=== PATIENT | female | born 1955 | race Caucasian/White ===

== ENCOUNTER 2021-12-05 13:07 | Observation (INO) | payer MEDICARE, BC ==
[2021-12-05 14:39] LABS: Basophils % (A) 0 %; Eosinophils # (A) 0.1 k/uL (0-0.7); Eosinophils % (A) 1 %; HCT 44.3 % (34.0-46.0); HGB 14.6 gm/dL (11.4-16.0); Lymphocytes # (A) 1.5 k/uL (1.0-4.8); Lymphocytes % (A) 17 %; MCHC 33.1 g/dL (31.0-37.0); MCV 96.9 fL (80.0-100.0); Mean Platelet Volume 7.4; Monocytes # (A) 0.7 k/uL (0-1.0); Monocytes % (A) 8 %; Neutrophils # (A) 6.4 k/uL (1.3-7.7); Neutrophils % (A) 72 %; Platelet Count 371 k/uL (150-450); RBC 4.57 m/uL (3.80-5.40); RDW 13.5 % (11.5-15.5); WBC 8.9 k/uL (3.8-10.6)
[2021-12-05 14:49] LABS: ALT 102 U/L (4-34); AST 80 U/L (14-36); African American GFR (CKD) >90 (>60 ml/min/1.73 sqM); Albumin 3.9 g/dL (3.5-5.0); Alkaline Phosphatase 83 U/L (38-126); Anion Gap 10 mmol/L; Blood Urea Nitrogen 9 mg/dL (7-17); Calcium 8.9 mg/dL (8.4-10.2); Carbon Dioxide 27 mmol/L (22-30); Chloride 98 mmol/L (98-107); Glucose 98 mg/dL (74-99); Non-African American GFR(CKD) >90 (>60 ml/min/1.73 sqM); Potassium 3.5 mmol/L (3.5-5.1); Sodium 135 mmol/L (137-145); Total Bilirubin 0.9 mg/dL (0.2-1.3); Total Protein 6.8 g/dL (6.3-8.2)
[2021-12-05 14:50] LABS: INR 0.9 (<1.2); Partial Thromboplastin Time 25.5 sec (22.0-30.0); Prothrombin Time 9.9 sec (9.0-12.0)
[2021-12-05] MEDS ORDERED: IPRATROPIUM-ALBUTEROL 3 ML NEB INHALATION STA (16:04)
[2021-12-05] MEDS ORDERED: diazePAM 5 MG/ML 1 ML VIAL IVP STA ×2 (16:04→17:51)
[2021-12-05 17:16] LABS: Appearance,Urine Clear (Clear); Bilirubin,Urine Negative (Negative); Blood,Urine Negative (Negative); Color,Urine Light Yellow; Glucose,Urine (UA) Negative (Negative); Ketones,Urine Negative (Negative); Leukocyte Esterase,Urine Negative (Negative); Nitrite,Urine Negative (Negative); Protein,Urine Negative (Negative); Specific Gravity,Urine 1.008 (1.001-1.035); Urobilinogen,Urine <2.0 mg/dL (<2.0)
--- NOTE | 2021-12-05 17:45 | CT ---
EXAMINATION TYPE: CT brain claudia baron DATE OF EXAM: 12/05/2021 COMPARISON: None HISTORY: headaches CT DLP: 1257 mGycm Automated exposure control for dose reduction was used. There is some cerebral cortical atrophy. There is no mass effect or midline shift. No sign of intracr anial hemorrhage. There is hypodensity in the periventricular white matter. The calvarium is intact. There is normal aeration of the mastoid sinuses. Skull base is intact. There is some straightening of the cervical spine. There is mild anterior subluxation at C4-5 posteri or elements are intact. There is multilevel cervical hypertrophic facet arthropathy. There is narrowi ng of disc spaces at C5-6 and C6-7. No compression fracture. IMPRESSION: Cervical multilevel spondylotic changes. Degenerative mild subluxation at C4-5. No fracture seen. Cerebral atrophy. No acute intracranial abnormality. Chronic small vessel ischemia.
--- NOTE | 2021-12-05 18:31 | CT ---
EXAMINATION TYPE: CT chest angio for PE DATE OF EXAM: 12/05/2021 COMPARISON: None HISTORY: SOB, elevated d-dimer CT DLP: 262.1 mGycm Automated exposure control for dose reduction was used. CONTRAST: Performed with IV Contrast, patient injected with 35 mL of Isovue 370. Images obtained from the thoracic inlet to the diaphragm with the IV contrast. There are Three-D post processed images. There is extensive interstitial and airspace infiltrate in the entire right lower lobe. No pleural ef fusion. Heart size is normal. No pericardial effusion. There are no hilar masses. No mediastinal lennie opathy. Thoracic ureter is intact. No aneurysm. The ascending aorta measures 3.8 cm. No evidence of filling defect in the pulmonary arteries. The thoracic spine is intact. No compression fracture. Sternum is intact. There is mild degenerative spur formation in the thoracic spine. There is some mild interstitial infiltrate in the left lower lo be. IMPRESSION: No evidence of pulmonary embolism. Extensive right lower lobe pneumonia.
[2021-12-05] MEDS ORDERED: cefTRIAXone IN SWFI 1,000 MG/10 ML SYRINGE IVP STA (18:53)
[2021-12-05] MEDS ORDERED: AZITHROMYCIN 500 MG in SODIUM CHLORIDE 0.9% 250 ML IVPB STA (18:53)
--- NOTE | 2021-12-05 18:57 | ED ---
SOB HPI - General Chief Complaint: Shortness of Breath Stated Complaint: Pneumonia Time Seen by Provider: 12/05/21 15:56 Source: patient, RN notes reviewed Mode of arrival: ambulatory Limitations: no limitations - History of Present Illness Initial Comments: This is a 66-year-old female who presents to the emergency department for shortness of breath. She is visiting her sister from out of town and has been here for 6 days. Since she arrived, she has felt very weak and run down. 3 days ago, she was evaluated at urgent care and diagnosed with UTI. She has since been taking Bactrim. Over the last 2-3 days she has felt increasing shortness of breath and feels that she is becoming very easily winded. Also reports an associated cough and today had minor spots of blood in her sputum. Denies any fevers or chest pain. Additionally, she notes that she has started to acquire headaches. States that they have been present for the last 2 days, she describes them as being on the back and right side of her head. Denies any history of headaches, and states that these are some of the worst headaches of her life. Her mother does have a history of brain aneurysms. Denies any fevers, chills, sore throat, chest pain, palpitations, abdominal pain, nausea, vomiting, diarrhea, or back pain. MD Complaint: shortness of breath, cough Onset/Timin -: days(s) Known History Of: asthma Treatments Prior to Arrival: none - Related Data Home Medications Medication Instructions Recorded Confirmed Albuterol Sulfate [Ventolin HFA] 2 puff INHALATION RT-Q6H PRN 12/05/21 12/05/21 Alendronate Sodium 70 mg PO Q7D 12/05/21 12/05/21 Bisoprolol-Hctz 10-6.25 mg [Ziac 1 tab PO DIRECTED 12/05/21 12/05/21 10-6.25 MG] Cetirizine HCl 10 mg PO DAILY 12/05/21 12/05/21 Ezetimibe [Zetia] 10 mg PO DAILY 12/05/21 12/05/21 Montelukast [Singulair] 10 mg PO HS 12/05/21 12/05/21 Naproxen [EC-Naprosyn] 500 mg PO BID PRN 12/05/21 12/05/21 Sulfamethox-Tmp 800-160Mg [Bactrim 1 tab PO Q12HR 12/05/21 12/05/21 DS 800-160 mg] amLODIPine [Norvasc] 5 mg PO HS 12/05/21 12/05/21 rOPINIRole HCL [Requip] 2 mg PO HS 12/05/21 12/05/21 traMADol HCL 50 mg PO Q6H PRN 12/05/21 12/05/21 Allergies Allergy/AdvReac Type Severity Reaction Status Date / Time amlodipine [From Lotrel] Allergy Unknown Verified 12/05/21 13:58 benazepril [From Lotrel] Allergy Unknown Verified 12/05/21 13:58 isosorbide [From Imdur] Allergy Unknown Verified 12/05/21 13:58 Latex, Natural Rubber Allergy Unknown Verified 12/05/21 13:58 Review of Systems ROS Statement: Those systems with pertinent positive or pertinent negative responses have been documented in the HPI. ROS Other: All systems not noted in ROS Statement are negative. Past Medical History Past Medical History: Asthma, Hyperlipidemia, Hypertension History of Any Multi-Drug Resistant Organisms: None Reported Past Surgical History: Tonsillectomy, Tubal Ligation Additional Past Surgical History / Comment(s): angioplasty Past Psychological History: No Psychological Hx Reported Smoking Status: Former smoker Past Alcohol Use History: Occasional Past Drug Use History: None Reported General Exam Limitations: no limitations General appearance: alert, in no apparent distress Head exam: Present: atraumatic, normocephalic, normal inspection Eye exam: Present: normal appearance, PERRL, EOMI. Absent: scleral icterus, conjunctival injection, periorbital swelling Pupils: Present: normal accommodation ENT exam: Present: normal exam, mucous membranes moist Neck exam: Present: normal inspection. Absent: tenderness, meningismus, lymphadenopathy Respiratory exam: Present: normal lung sounds bilaterally, wheezes, decreased breath sounds, prolonged expiratory. Absent: rales, rhonchi, stridor Cardiovascular Exam: Present: regular rate, normal rhythm, normal heart sounds. Absent: systolic murmur, diastolic murmur, rubs, gallop, clicks Neurological exam: Present: alert, oriented X3, CN II-XII intact, normal gait Psychiatric exam: Present: normal affect, normal mood Skin exam: Present: warm, dry, intact, normal color. Absent: rash Course Vital Signs 12/05/21 12/05/21 12/05/21 13:52 16:30 16:40 Temperature 98.1 F Pulse Rate 80 72 72 Respiratory 22 18 18 Rate Blood Pressure 195/99 Blood Pressure [Right Arm] O2 Sat by Pulse 93 L Oximetry 12/05/21 12/05/21 12/05/21 18:00 18:30 19:00 Temperature Pulse Rate 76 Respiratory 18 Rate Blood Pressure 154/81 Blood Pressure [Right Arm] O2 Sat by Pulse 90 L 91 L 93 L Oximetry 12/05/21 21:46 Temperature Pulse Rate Respiratory Rate Blood Pressure Blood Pressure 169/93 [Right Arm] O2 Sat by Pulse Oximetry Medical Decision Making - Medical Decision Making This is a 66-year-old female who presents to the emergency department for difficulty breathing. Patient is noted to have an elevated d-dimer, CTA was subsequently obtained. This did not reveal any signs of pulmonary embolism, however it did identify an extensive right lobe pneumonia. Patient is also noted to be hypoxemic on room air with saturations reaching as low as 89%. She is also struggling to catch her breath when speaking on the phone. DuoNeb breathing treatment was administered, which she states did improve her symptoms. However, this did not improve her oxygen saturation levels. Given the new onset headaches and patient's claim of these being some of the worst headaches of her life, computed tomography scan of the brain was obtained. This did not reveal any acute irregularities. This may also be related to the patient's elevated blood pressure. She was noted to have extensive restless leg syndrome in the examination room. States that she usually takes Requip at night, however she rarely gets them this severe during the day. She was treated with Valium and Requip, which did subsequently improve her symptoms. Given the extensive pneumonia, hypoxemia, and beginning of hemoptysis, will admit patient to medicine for further management with IV antibiotics. Pulmonary consult placed per admitting team's request. This case was discussed in detail with the attending ED physician. Presentation, findings, and treatment plan discussed in detail as well. - Lab Data Result diagrams: 12/05/21 14:01 12/05/21 14:01 Lab Results 12/05/21 12/05/21 12/05/21 Range/Units 14:01 14: 14: WBC 8.9 (3.8-10.6) k/uL RBC 4.57 (3.80-5.40) m/uL Hgb 14.6 (11.4-16.0) gm/dL Hct 44.3 (34.0-46.0) % MCV 96.9 (80.0-100.0) fL MCH 32.0 (25.0-35.0) pg MCHC 33.1 (31.0-37.0) g/dL RDW 13.5 (11.5-15.5) % Plt Count 371 (150-450) k/uL MPV 7.4 Neutrophils % 72 % Lymphocytes % 17 % Monocytes % 8 % Eosinophils % 1 % Basophils % 0 % Neutrophils # 6.4 (1.3-7.7) k/uL Lymphocytes # 1.5 (1.0-4.8) k/uL Monocytes # 0.7 (0-1.0) k/uL Eosinophils # 0.1 (0-0.7) k/uL Basophils # 0.0 (0-0.2) k/uL PT 9.9 (9.0-12.0) sec INR 0.9 (<1.2) APTT 25.5 (22.0-30.0) sec D-Dimer (<0.60) mg/L FEU Sodium 135 L (137-145) mmol/L Potassium 3.5 (3.5-5.1) mmol/L Chloride 98 (98-107) mmol/L Carbon Dioxide 27 (22-30) mmol/L Anion Gap 10 mmol/L BUN 9 (7-17) mg/dL Creatinine 0.54 (0.52-1.04) mg/dL Est GFR (CKD-EPI)AfAm >90 (>60 ml/min/1.73 sqM) Est GFR (CKD-EPI)NonAf >90 (>60 ml/min/1.73 sqM) Glucose 98 (74-99) mg/dL Plasma Lactic Acid Ky (0.7-2.0) mmol/L Calcium 8.9 (8.4-10.2) mg/dL Total Bilirubin 0.9 (0.2-1.3) mg/dL AST 80 H (14-36) U/L ALT 102 H (4-34) U/L Alkaline Phosphatase 83 (38-126) U/L Troponin I (0.000-0.034) ng/mL Total Protein 6.8 (6.3-8.2) g/dL Albumin 3.9 (3.5-5.0) g/dL Urine Color Urine Appearance (Clear) Urine pH (5.0-8.0) Ur Specific Dilliner (1.001-1.035) Urine Protein (Negative) Urine Glucose (UA) (Negative) Urine Ketones (Negative) Urine Blood (Negative) Urine Nitrite (Negative) Urine Bilirubin (Negative) Urine Urobilinogen (<2.0) mg/dL Ur Leukocyte Esterase (Negative) Coronavirus (PCR) (Not Detectd) Influenza Type A RNA (Not Detectd) Influenza Type B (PCR) (Not Detectd) 12/05/21 12/05/21 12/05/21 Range/Units 14:01 14:01 16:55 WBC (3.8-10.6) k/uL RBC (3.80-5.40) m/uL Hgb (11.4-16.0) gm/dL Hct (34.0-46.0) % MCV (80.0-100.0) fL MCH (25.0-35.0) pg MCHC (31.0-37.0) g/dL RDW (11.5-15.5) % Plt Count (150-450) k/uL MPV Neutrophils % % Lymphocytes % % Monocytes % % Eosinophils % % Basophils % % Neutrophils # (1.3-7.7) k/uL Lymphocytes # (1.0-4.8) k/uL Monocytes # (0-1.0) k/uL Eosinophils # (0-0.7) k/uL Basophils # (0-0.2) k/uL PT (9.0-12.0) sec INR (<1.2) APTT (22.0-30.0) sec D-Dimer 1.88 H (<0.60) mg/L FEU Sodium (137-145) mmol/L Potassium (3.5-5.1) mmol/L Chloride (98-107) mmol/L Carbon Dioxide (22-30) mmol/L Anion Gap mmol/L BUN (7-17) mg/dL Creatinine (0.52-1.04) mg/dL Est GFR (CKD-EPI)AfAm (>60 ml/min/1.73 sqM) Est GFR (CKD-EPI)NonAf (>60 ml/min/1.73 sqM) Glucose (74-99) mg/dL Plasma Lactic Acid Ky 1.2 (0.7-2.0) mmol/L Calcium (8.4-10.2) mg/dL Total Bilirubin (0.2-1.3) mg/dL AST (14-36) U/L ALT (4-34) U/L Alkaline Phosphatase (38-126) U/L Troponin I <0.012 (0.000-0.034) ng/mL Total Protein (6.3-8.2) g/dL Albumin (3.5-5.0) g/dL Urine Color Urine Appearance (Clear) Urine pH (5.0-8.0) Ur Specific Dilliner (1.001-1.035) Urine Protein (Negative) Urine Glucose (UA) (Negative) Urine Ketones (Negative) Urine Blood (Negative) Urine Nitrite (Negative) Urine Bilirubin (Negative) Urine Urobilinogen (<2.0) mg/dL Ur Leukocyte Esterase (Negative) Coronavirus (PCR) (Not Detectd) Influenza Type A RNA (Not Detectd) Influenza Type B (PCR) (Not Detectd) 12/05/21 12/05/21 12/05/21 Range/Units 16:55 16:55 16:55 WBC (3.8-10.6) k/uL RBC (3.80-5.40) m/uL Hgb (11.4-16.0) gm/dL Hct (34.0-46.0) % MCV (80.0-100.0) fL MCH (25.0-35.0) pg MCHC (31.0-37.0) g/dL RDW (11.5-15.5) % Plt Count (150-450) k/uL MPV Neutrophils % % Lymphocytes % % Monocytes % % Eosinophils % % Basophils % % Neutrophils # (1.3-7.7) k/uL Lymphocytes # (1.0-4.8) k/uL Monocytes # (0-1.0) k/uL Eosinophils # (0-0.7) k/uL Basophils # (0-0.2) k/uL PT (9.0-12.0) sec INR (<1.2) APTT (22.0-30.0) sec D-Dimer (<0.60) mg/L FEU Sodium (137-145) mmol/L Potassium (3.5-5.1) mmol/L Chloride (98-107) mmol/L Carbon Dioxide (22-30) mmol/L Anion Gap mmol/L BUN (7-17) mg/dL Creatinine (0.52-1.04) mg/dL Est GFR (CKD-EPI)AfAm (>60 ml/min/1.73 sqM) Est GFR (CKD-EPI)NonAf (>60 ml/min/1.73 sqM) Glucose (74-99) mg/dL Plasma Lactic Acid Ky (0.7-2.0) mmol/L Calcium (8.4-10.2) mg/dL Total Bilirubin (0.2-1.3) mg/dL AST (14-36) U/L ALT (4-34) U/L Alkaline Phosphatase (38-126) U/L Troponin I (0.000-0.034) ng/mL Total Protein (6.3-8.2) g/dL Albumin (3.5-5.0) g/dL Urine Color Light Yellow Urine Appearance Clear (Clear) Urine pH 8.0 (5.0-8.0) Ur Specific Dilliner 1.008 (1.001-1.035) Urine Protein Negative (Negative) Urine Glucose (UA) Negative (Negative) Urine Ketones Negative (Negative) Urine Blood Negative (Negative) Urine Nitrite Negative (Negative) Urine Bilirubin Negative (Negative) Urine Urobilinogen <2.0 (<2.0) mg/dL Ur Leukocyte Esterase Negative (Negative) Coronavirus (PCR) Not Detected (Not Detectd) Influenza Type A RNA Not Detected (Not Detectd) Influenza Type B (PCR) Not Detected (Not Detectd) - Radiology Data Radiology results: report reviewed, image reviewed Disposition Clinical Impression: Pneumonia, Hypoxemia, Hemoptysis Disposition: ADMITTED IP TO THIS HOSP
[2021-12-05] MEDS ORDERED: NALOXONE 0.4 MG/ML 1 ML VIAL IV PRN (19:05)
[2021-12-05] MEDS ORDERED: HYDROcodone/APAP 5-325MG 1 EACH TAB PO PRN (19:05)
[2021-12-05] MEDS ORDERED: ONDANSETRON 4 MG/2 ML VIAL IVP PRN (19:05)
[2021-12-05] MEDS ORDERED: ACETAMINOPHEN TAB 325 MG TAB PO PRN (19:05)
[2021-12-05] MEDS ORDERED: ALBUTEROL NEBULIZED 2.5 MG/3 ML INHALATION PRN (22:17)
[2021-12-05] MEDS: amLODIPine 5 MG TAB PO SCH (22:37)
[2021-12-05] MEDS ORDERED: MONTELUKAST 10 MG TAB PO SCH (23:00)
[2021-12-06] MEDS: IPRATROPIUM-ALBUTEROL 3 ML NEB INHALATION SCH ×6 (01:08→19:56)
[2021-12-06] MEDS: AZITHROMYCIN 500 MG TAB PO SCH (08:45)
[2021-12-06] MEDS: MONTELUKAST 10 MG TAB PO SCH (08:45)
[2021-12-06] MEDS ORDERED: traMADol 50 MG TAB PO PRN (09:24)
--- NOTE | 2021-12-06 09:28 | XR ---
EXAMINATION TYPE: XR chest 2V DATE OF EXAM: 12/06/2021 COMPARISON: CT 12/05/2021 HISTORY: Pneumonia TECHNIQUE: Frontal and lateral views of the chest are obtained. FINDINGS: airspace disease persists at the right lung base. No evident pneumothorax or pleural effus ion. Cardiac mediastinal silhouette is within normal limits. Aorta is dense. There is underlying emph ysema, prominent lung volume. IMPRESSION: Right lower lobe pneumonia
[2021-12-06] MEDS: BISOPROLOL-HCTZ 10-6.25 MG 1 EACH TAB PO SCH (13:25)
--- NOTE | 2021-12-06 13:51 | P.HPIM ---
History of Present Illness H&P Date: 12/06/21 This is a 66-year-old female with medical history significant for asthma, hyperlipidemia, hypertension, coronary artery disease with PCI in the 90s, former smoker quit over 20 years ago. She also reports alcohol use drinks a beer to 2 when shes cooking dinner, out in the yard. Patient presented to the with complaints of shortness of breath, generalized weakness and fatigue. Patient was diagnosed with UTI at urgent care 3 days ago and has been taking Bactrim however over the past 2-3 days she has associated cough and blood in the sputum. She also reports headache. She traveled here from [place] on , she does report feeling short of breath prior to traveling. She is here visiting family. Patient received empiric antibiotic coverage with IV azithromycin and IV ceftriaxone in the emergency room. She is also on DuoNeb's. Labs on admission showing a white count of 8.9, sodium 135, elevated transaminases, urinalysis is negative, Covid Negative, influenza A negative, influenza B negative, d-dimer was elevated at 1.88. Patient had CT angiography performed which is negative for pulmonary embolism there is extensive right lower lobe pneumonia. She also has had cervical spine CT completed which shows multilevel spondylitic changes with degenerative mild subluxation at C4 to 5 with no fracture seen. There is no atrophy with no acute intracranial abnormality, there is chronic small vessel ischemia. She is afebrile, heart rate in the 70s normal sinus rhythm, blood pressure 137/90 she is 92% oxygenation on room air. Pulmonary team has been consulted. REVIEW OF SYSTEMS: CONSTITUTIONAL: No fever, no malaise, no fatigue. HEENT: No recent visual problems or hearing problems. Denied any sore throat. CARDIOVASCULAR: No chest pain, orthopnea, PND, no palpitations, no syncope. PULMONARY: Reports shortness of breath, non productive cough did have an episode of blood streaked sputum yesterday. GASTROINTESTINAL: No diarrhea, no nausea, no vomiting, no abdominal pain. NEUROLOGICAL: No headaches, no weakness, no numbness. HEMATOLOGICAL: Denies any bleeding or petechiae. GENITOURINARY: Denies any burning micturition, frequency, or urgency. MUSCULOSKELETAL/RHEUMATOLOGICAL: Denies any joint pain, swelling, or any muscle pain. ENDOCRINE: Denies any polyuria or polydipsia. The rest of the 14-point review of systems is negative. PHYSICAL EXAMINATION: GENERAL: The patient is alert and oriented x3, not in any acute distress. Well developed, well nourished. HEENT: Pupils are round and equally reacting to light. EOMI. No scleral icterus. No conjunctival pallor. Normocephalic, atraumatic. No pharyngeal erythema. No thyromegaly. CARDIOVASCULAR: S1 and S2 present. No murmurs, rubs, or gallops. PULMONARY: Faint crackles left base, dry hacking cough provoked by deep breathing ABDOMEN: Soft, nontender, nondistended, normoactive bowel sounds. No palpable organomegaly. MUSCULOSKELETAL: No joint swelling or deformity. EXTREMITIES: No cyanosis, clubbing, or pedal edema. NEUROLOGICAL: Gross neurological examination did not reveal any focal deficits. SKIN: No rashes. Assessment and plan Assessment Right lower lobe pneumonia Recent treatment for UTI, urinalysis negative no need to continue on bactrim, symptoms have resolved Elevated d-dimer CTA negative for pulmonary embolism Mild transaminases Hypertension History asthma Hyperlipidemia Former smoker GI Prophylaxis DVT Prophylaxis Full Code Plan Continue empiric antibiotic coverage Sputum culture ordered Resume appropriate home medications Procalcitonin ordered Pulmonary consultation Follow up chest xray pending The impression and plan of care has been dictated by Heaven Munguia, Nurse Practitioner as directed. Dr. Semaj MD I have performed a history and physical examination and medical decision making of this patient, discussed the same with the dictator, and agree with the dictators assessment and plan as written, documented as a scribe. Based on total visit time, I have performed more than 50% of this visit. Past Medical History Past Medical History: Asthma, Hyperlipidemia, Hypertension History of Any Multi-Drug Resistant Organisms: None Reported Past Surgical History: Tonsillectomy, Tubal Ligation Additional Past Surgical History / Comment(s): angioplasty Past Anesthesia/Blood Transfusion Reactions: No Reported Reaction Past Psychological History: No Psychological Hx Reported Smoking Status: Former smoker Past Alcohol Use History: Occasional Past Drug Use History: None Reported Medications and Allergies Home Medications Medication Instructions Recorded Confirmed Type Albuterol Sulfate [Ventolin HFA] 2 puff INHALATION RT-Q6H PRN 12/05/21 12/05/21 History Alendronate Sodium 70 mg PO Q7D 12/05/21 12/05/21 History Bisoprolol-Hctz 10-6.25 mg [Ziac 1 tab PO DIRECTED 12/05/21 12/05/21 History 10-6.25 MG] Cetirizine HCl 10 mg PO DAILY 12/05/21 12/05/21 History Ezetimibe [Zetia] 10 mg PO DAILY 12/05/21 12/05/21 History Montelukast [Singulair] 10 mg PO HS 12/05/21 12/05/21 History Naproxen [EC-Naprosyn] 500 mg PO BID PRN 12/05/21 12/05/21 History Sulfamethox-Tmp 800-160Mg [Bactrim 1 tab PO Q12HR 12/05/21 12/05/21 History DS 800-160 mg] amLODIPine [Norvasc] 5 mg PO HS 12/05/21 12/05/21 History rOPINIRole HCL [Requip] 2 mg PO HS 12/05/21 12/05/21 History traMADol HCL 50 mg PO Q6H PRN 12/05/21 12/05/21 History Allergies Allergy/AdvReac Type Severity Reaction Status Date / Time amlodipine [From Lotrel] Allergy Unknown Verified 12/05/21 13:58 benazepril [From Lotrel] Allergy Unknown Verified 12/05/21 13:58 isosorbide [From Imdur] Allergy Unknown Verified 12/05/21 13:58 Latex, Natural Rubber Allergy Unknown Verified 12/05/21 13:58 Physical Exam Vitals: Vital Signs Temp Pulse Pulse Resp BP BP Pulse Ox 12/06/21 07:35 72 12/06/21 07:26 70 12/06/21 07:00 97.9 F 77 18 137/90 92 L 12/06/21 01:21 98.4 F 103 H 16 167/92 93 L 12/06/21 01:16 78 12/06/21 01:09 76 12/05/21 21:46 169/93 12/05/21 19:00 76 18 154/81 93 L 12/05/21 18:30 91 L 12/05/21 18:00 90 L 12/05/21 16:40 72 18 12/05/21 16:30 72 18 12/05/21 13:52 98.1 F 80 22 195/99 93 L Intake and Output 0812/06/21 12/06/21 22:59 06:59 14:59 Intake Total 118 Balance 118 Intake: Oral 118 Other: Voiding Method Toilet # Voids 1 Weight 63.503 kg Results CBC & Chem 7: 12/05/21 14:01 12/05/21 14:01 Labs: Abnormal Lab Results - Last 24 Hours (Table) 12/05/21 12/05/21 Range/Units 14:01 16:55 D-Dimer 1.88 H (<0.60) mg/L FEU Sodium 135 L (137-145) mmol/L AST 80 H (14-36) U/L ALT 102 H (4-34) U/L Thrombosis Risk Factor Assmnt - Choose All That Apply Any of the Below Risk Factors Present?: Yes Each Factor Represents 1 point: Serious lung disease incl. pneumonia (< 1month) Other Risk Factors: Yes Each Risk Factor Represents 2 Points: Age 61-74 years Other congenital or acquired thrombophilia - If yes, enter type in comment: No Thrombosis Risk Factor Assessment Total Risk Factor Score: 3 Thrombosis Risk Factor Assessment Level: Moderate Risk Assessment and Plan Time with Patient: Less than 30
--- NOTE | 2021-12-06 14:07 | P.CNPUL ---
History of Present Illness Consult date: 12/06/21 Requesting physician: Manuel Pritchett Reason for consult: dyspnea, cough, pneumonia, abnormal CXR/CT Chief complaint: Cough, shortness of breath. History of present illness: Pulmonary consult dated 12/06/2021. This is a 66-year-old female who apparently resides in [place], and is here in town visiting her sister. She apparently comes into the emergency department on December 05, complaining of shortness of breath, cough, and feeling weak and rundown. She was evaluated a couple days prior to her ER visit and was prescribed some Bactrim for a urinary tract infection. Because her symptoms got worse, she came into the emergency room to be evaluated. Her chest x-ray and computed tomography scan showed a consolidation in the right lower lobe, and she was minute with a diagnosis of community acquired pneumonia. She is currently on Rocephin and Zithromax. She's on room air. She did smoke in the past but quit in 1990. She was never a heavy smoker. Her family doctor is in [facility]. She denies a prior history of any lung issues. CBC was completely normal. D-dimer was 1.88. Electrolytes are essentially normal save for as low sodium of 135, and AST of 80, and an ALT of 102. Pro-calcitonin level was 0.09. Urine was negative. Testing for coronavirus was negative. Both the chest x- ray, and the CAT scans were reviewed. Review of Systems REVIEW OF SYSTEMS: CONSTITUTIONAL: Weakness and fatigue. NEUROLOGIC: [ Negative.] HEENT: [ Negative.] CARDIAC: [Negative.] PULMONARY: Shortness of breath, and cough. GI: [Negative.] : [Negative.] RHEUMATOLOGIC: [ Negative.] IMMUNOLOGIC: [ Negative.] ENDOCRINE: [Negative. ] DERMATOLOGIC: [Negative.] Past Medical History Past Medical History: Asthma, Hyperlipidemia, Hypertension History of Any Multi-Drug Resistant Organisms: None Reported Past Surgical History: Tonsillectomy, Tubal Ligation Additional Past Surgical History / Comment(s): angioplasty Past Anesthesia/Blood Transfusion Reactions: No Reported Reaction Past Psychological History: No Psychological Hx Reported Smoking Status: Former smoker Past Alcohol Use History: Occasional Past Drug Use History: None Reported Medications and Allergies Home Medications Medication Instructions Recorded Confirmed Type Albuterol Sulfate [Ventolin HFA] 2 puff INHALATION RT-Q6H PRN 12/05/21 12/05/21 History Alendronate Sodium 70 mg PO Q7D 12/05/21 12/05/21 History Bisoprolol-Hctz 10-6.25 mg [Ziac 1 tab PO DIRECTED 12/05/21 12/05/21 History 10-6.25 MG] Cetirizine HCl 10 mg PO DAILY 12/05/21 12/05/21 History Ezetimibe [Zetia] 10 mg PO DAILY 12/05/21 12/05/21 History Montelukast [Singulair] 10 mg PO HS 12/05/21 12/05/21 History Naproxen [EC-Naprosyn] 500 mg PO BID PRN 12/05/21 12/05/21 History Sulfamethox-Tmp 800-160Mg [Bactrim 1 tab PO Q12HR 12/05/21 12/05/21 History DS 800-160 mg] amLODIPine [Norvasc] 5 mg PO HS 12/05/21 12/05/21 History rOPINIRole HCL [Requip] 2 mg PO HS 12/05/21 12/05/21 History traMADol HCL 50 mg PO Q6H PRN 12/05/21 12/05/21 History Allergies Allergy/AdvReac Type Severity Reaction Status Date / Time amlodipine [From Lotrel] Allergy Unknown Verified 12/05/21 13:58 benazepril [From Lotrel] Allergy Unknown Verified 12/05/21 13:58 isosorbide [From Imdur] Allergy Unknown Verified 12/05/21 13:58 Latex, Natural Rubber Allergy Unknown Verified 12/05/21 13:58 Physical Exam Osteopathic Statement: *. No significant issues noted on an osteopathic structural exam other than those noted in the History and Physical/Consult. Vitals: Vital Signs Temp Pulse Pulse Resp BP BP Pulse Ox 12/06/21 11:15 80 12/06/21 11:04 82 12/06/21 08:00 77 18 12/06/21 07:35 72 12/06/21 07:26 70 12/06/21 07:00 97.9 F 77 18 137/90 92 L 12/06/21 01:21 98.4 F 103 H 16 167/92 93 L 12/06/21 01:16 78 12/06/21 01:09 76 12/05/21 21:46 169/93 12/05/21 19:00 76 18 154/81 93 L 12/05/21 18:30 91 L 12/05/21 18:00 90 L 12/05/21 16:40 72 18 12/05/21 16:30 72 18 Intake and Output 12/05/21 12/06/21 12/06/21 22:59 06:59 14:59 Intake Total 236 Balance 236 Intake: Oral 236 Other: Voiding Method Toilet Toilet # Voids 1 Weight 63.503 kg No acute distress, oriented 3. Room air saturation 93%. HEENT examination is grossly unremarkable. Neck supple. Full range of motion. No adenopathy thyromegaly or neck vein distention. Cardiovascular examination reveals regular rhythm rate. S1-S2 normal. No S3 or S4. No discernible murmur noted. Heart rate 80 bpm. Lungs reveal scattered bilateral rhonchi. No wheezes. No crackles. Breath sounds equal bilaterally. Abdomen soft bowel sounds are heard. No masses or tenderness. Extremities are intact. No cyanosis clubbing or edema. Skin is without rash or lesion. Neurologic examination is brief but nonfocal. Results - Laboratory Findings CBC and BMP: 12/05/21 14:01 12/05/21 14:01 PT/INR, D-dimer PT 9.9 sec (9.0-12.0) 12/05/21 14:01 INR 0.9 (<1.2) 12/05/21 14:01 D-Dimer 1.88 mg/L FEU (<0.60) H 12/05/21 16:55 Abnormal lab findings: Abnormal Labs 12/05/21 12/05/21 14:01 16:55 D-Dimer 1.88 H Sodium 135 L AST 80 H ALT 102 H - Diagnostic Findings Chest x-ray: image reviewed CT scan - chest: image reviewed Assessment and Plan Assessment: Community-acquired pneumonia, right lower lobe. Recent diagnosis of urinary tract infection. History of hypertension. History of hyperlipidemia. History of mild asthma. Plan: Plan dated 12/06/2021. The patient is seen and evaluated, in room 628. X-rays and CAT scans were reviewed. Additional consolidation in the right lower lobe. The patient's on azithromycin and ceftriaxone. The patient's also receiving breathing treatments. Room air saturations are excellent. The patient does not appear septic or toxic. We will continue to follow make recommendations where appropriate. The patient does carry with her a diagnosis of mild asthma. Time with Patient: Greater than 30
[2021-12-06] MEDS: FAMOTIDINE 20 MG TAB PO SCH (20:01)
[2021-12-06] MEDS: amLODIPine 5 MG TAB PO SCH (20:01)
[2021-12-07] MEDS: IPRATROPIUM-ALBUTEROL 3 ML NEB INHALATION SCH ×4 (01:00→11:40)
[2021-12-07] MEDS: MONTELUKAST 10 MG TAB PO SCH (07:24)
[2021-12-07] MEDS: BISOPROLOL-HCTZ 10-6.25 MG 1 EACH TAB PO SCH (07:24)
[2021-12-07] MEDS: AZITHROMYCIN 500 MG TAB PO SCH (07:24)
[2021-12-07] MEDS: FAMOTIDINE 20 MG TAB PO SCH (07:25)
--- NOTE | 2021-12-07 07:28 | P.PN ---
Subjective Progress Note Date: 12/07/21 Principal diagnosis: Shortness of breath. Pulmonary consult dated 12/06/2021. This is a 66-year-old female who apparently resides in [place], and is here in town visiting her sister. She apparently comes into the emergency department on December 05, complaining of shortness of breath, cough, and feeling weak and rundown. She was evaluated a couple days prior to her ER visit and was prescribed some Bactrim for a urinary tract infection. Because her symptoms got worse, she came into the emergency room to be evaluated. Her chest x-ray and computed tomography scan showed a consolidation in the right lower lobe, and she was minute with a diagnosis of community acquired pneumonia. She is currently on Rocephin and Zithromax. She's on room air. She did smoke in the past but quit in 1990. She was never a heavy smoker. Her family doctor is in [place]. She denies a prior history of any lung issues. CBC was completely normal. D-dimer was 1.88. Electrolytes are essentially normal save for as low sodium of 135, and AST of 80, and an ALT of 102. Pro-calcitonin level was 0.09. Urine was negative. Testing for coronavirus was negative. Both the chest x- ray, and the CAT scans were reviewed. Progress note dated 12/07/2021. 66-year-old female seen yesterday in consultation. She resides in [place]. She was here in [place] visiting a friend. Anyway, the patient presented to the emergency room with complaints of shortness of breath, cough, and feeling weak and rundown. She was previously on Bactrim for urinary tract infection and a chest x-ray and CAT scan revealed a right lower lobe pneumonia. She's currently on room air. No respiratory distress. She's not receiving any IV fluids. In my opinion, the patient could be considered for possible discharge. Never really appeared that sick, and her CURB-65 score was low. No new labs today other than a pro-calcitonin level 0.09 from yesterday. Blood cultures are negative. Objective - Vital Signs Vital signs: Vital Signs Temp 98.3 F 12/07/21 03:39 Pulse 71 12/07/21 03:39 Resp 15 12/07/21 03:39 BP 119/77 12/07/21 03:39 Pulse Ox 92 L 12/07/21 03:39 FiO2 Intake & Output 12/06/21 12/07/21 12/07/21 18:59 06:59 18:59 Intake Total 236 Balance 236 Intake: Oral 236 Other: Voiding Method Toilet Toilet # Voids 1 1 - Exam No acute distress, oriented 3. Room air saturation 92 %. HEENT examination is grossly unremarkable. Neck supple. Full range of motion. No adenopathy thyromegaly or neck vein distention. Cardiovascular examination reveals regular rhythm rate. S1-S2 normal. No S3 or S4. No discernible murmur noted. Heart rate 71 bpm. Lungs reveal scattered bilateral rhonchi. No wheezes. No crackles. Breath sounds equal bilaterally. Abdomen soft bowel sounds are heard. No masses or tenderness. Extremities are intact. No cyanosis clubbing or edema. Skin is without rash or lesion. Neurologic examination is brief but nonfocal. - Labs CBC & Chem 7: 12/05/21 14:01 12/05/21 14:01 Labs: Microbiology - Last 24 Hours (Table) 12/05/21 14:01 Blood Culture - Preliminary Blood No Growth after 24 hours Assessment and Plan Assessment: Community-acquired pneumonia, right lower lobe. Recent diagnosis of urinary tract infection. History of hypertension. History of hyperlipidemia. History of mild asthma. Plan: Plan dated 12/06/2021. The patient is seen and evaluated, in room 628. X-rays and CAT scans were reviewed. Additional consolidation in the right lower lobe. The patient's on azithromycin and ceftriaxone. The patient's also receiving breathing treatments. Room air saturations are excellent. The patient does not appear septic or toxic. We will continue to follow make recommendations where appropriate. The patient does carry with her a diagnosis of mild asthma. Plan dated 12/07/2021. The patient is seen today in room 628. She sitting in a chair next to the bed. She's not receiving any IV fluids. There is no supplemental oxygen. Her breathing is stable. Cultures as far negative. Chest x-ray and CAT scan showed a pneumonia in the right lower lobe. In my opinion, the patient could be discharged home. Currently, she is on Rocephin and azithromycin for community acquired pneumonia. She could go home on Zithromax and a oral cephalosporin such as Ceftin or Omnicef, or rather, go home on Levaquin as solo therapy. She should have a follow-up chest x-ray. No additional recommendations are made. Time with Patient: Less than 30
[2021-12-07 07:45] VITALS: BP 129/88; RESP 17; TEMP 97.6
[2021-12-07] MEDS ORDERED: EZETIMIBE 10 MG TAB PO SCH (09:00)
[2021-12-07 09:02] LABS: African American GFR (CKD) 116.1 (60.0-200.0); Albumin 3.1 g/dL (3.8-4.9); Albumin/Globulin Ratio 1.29 (1.60-3.17); Anion Gap 8.1 mmol/L (10.00-18.00); BUN/Creat Ratio 10.8 Ratio (12.00-20.00); Blood Urea Nitrogen 5.4 mg/dL (9.0-27.0); Calcium 8.4 mg/dL (8.7-10.3); Carbon Dioxide 27.9 mmol/L (20.0-27.5); Globulin 2.4 g/dL (1.6-3.3); Non-African American GFR(CKD) 100.1 (60.0-200.0); Potassium 3.8 mmol/L (3.5-5.5); Total Bilirubin 0.4 mg/dL (0.30-1.20); Total Protein 5.5 g/dL (6.2-8.2)
[2021-12-07 11:53] VITALS: PULSE 72
--- NOTE | 2021-12-08 00:17 | P.DS ---
Providers Date of admission: 12/05/21 18:56 Attending physician: Manuel Pritchett Consults: 12/05/21 19:05 Consult Physician Urgent Consulting Provider: Ramesh Blair Consult Reason/Comments: Pneumonia, hemoptysis, hypoxemia Do you want consulting provider notified?: Yes Primary care physician: Physician Nonstaff Hospital Course: Diagnosis Right lower lobe pneumonia community acquired Recent treatment for UTI, urinalysis negative no need to continue on bactrim, symptoms have resolved Elevated d-dimer CTA negative for pulmonary embolism Mild transaminases Hypertension History asthma Hyperlipidemia History Coronary artery disease post PCI Former smoker Full Code Discharge Disposition Patient is stable for discharge. Cleared by pulmonary. Recommend repeat labs in and repeat chest xray outpatient. Hospital Course This is a 66-year-old female with medical history significant for asthma, hyperlipidemia, hypertension, coronary artery disease with PCI in the 90s, former smoker quit over 20 years ago. She also reports alcohol use drinks a beer to 2 when shes cooking dinner, out in the yard. Patient presented to the with complaints of shortness of breath, generalized weakness and fatigue. Patient was diagnosed with UTI at urgent care 3 days ago and has been taking Bactrim however over the past 2-3 days she has associated cough and blood in the sputum. She also reports headache. She traveled here from [place] on , she does report feeling short of breath prior to traveling. She is here visiting family. Patient received empiric antibiotic coverage with IV azithromycin and IV ceftriaxone in the emergency room. She is also on DuoNeb's. Labs on admission showing a white count of 8.9, sodium 135, elevated transaminases, urinalysis is negative, Covid Negative, influenza A negative, influenza B negative, d-dimer was elevated at 1.88. Patient had CT angiography performed which is negative for pulmonary embolism there is extensive right lower lobe pneumonia. She also has had cervical spine CT completed which shows multilevel spondylitic changes with degenerative mild subluxation at C4 to 5 with no fracture seen. There is no atrophy with no acute intracranial abnormality, there is chronic small vessel ischemia. She is afebrile, heart rate in the 70s normal sinus rhythm, blood pressure 137/90 she is 92% oxygenation on room air. Pulmonary team has evaluated the patient and cleared for discharge on oral antibiotics and recommending to follow up with repeat chest xray outpatient to monitor for resolution of right lower lobe pneumonia. 12/07/2021 Patient is evaluated today resting in bed. No acute events overnight. She states she is breathing better. She denies chest pain, no shortness of breath. Continues with intermittent cough non productive. She does report some nasal congestion. Blood culture is negative. Repeat chest xray showing right lower lobe pneumonia. She did have procalcitonin level done which is not suggestive of bacterial infection. Urinalysis negative. She does not have an elevated white blood cell count. Sodium today 132, potassium 3.8. She does take bisoprolol hydrochlorothiazide combination blood pressure medication. Blood pressure is in the 110s systolic. Wound recommending holding Ziac on discharge until follow up with primary care and repeat sodium level. Lungs have faint crackle right base which is slightly improved from yesterday. S1 S2 auscultated, abdomen is soft and nontender. Alert x 3 focal neurological exam is negative. discharged on empiric antibiotics for pneumonia, stop bactrim. Please see medication reconciliation for a list of current medication. Thank you for allowing us to participate in the care of this patient. Total time taken in discharge planning greater than 35 minutes. The impression and plan of care has been dictated by Heaven Munguia Nurse Practitioner as directed. Dr. Semaj MD I have performed a history and physical examination and medical decision making of this patient, discussed the same with the dictator, and agree with the dictators assessment and plan as written, documented as a scribe. Based on total visit time, I have performed more than 50% of this visit. Patient Condition at Discharge: Stable Plan - Discharge Summary Discharge Rx Participant: No New Discharge Prescriptions: New Cefdinir [Omnicef] 300 mg PO Q12HR 5 Days #10 capsule Azithromycin [Zithromax] 500 mg PO DAILY 3 Days #3 tab Famotidine [Pepcid] 20 mg PO DAILY #30 tab Continue traMADol HCL 50 mg PO Q6H PRN PRN Reason: Pain Ezetimibe [Zetia] 10 mg PO DAILY Montelukast [Singulair] 10 mg PO HS Cetirizine HCl 10 mg PO DAILY Naproxen [EC-Naprosyn] 500 mg PO BID PRN PRN Reason: Pain Albuterol Sulfate [Ventolin HFA] 2 puff INHALATION RT-Q6H PRN PRN Reason: Shortness Of Breath rOPINIRole HCL [Requip] 2 mg PO HS Alendronate Sodium 70 mg PO Q7D amLODIPine [Norvasc] 5 mg PO HS Discontinued Bisoprolol-Hctz 10-6.25 mg [Ziac 10-6.25 MG] 1 tab PO DIRECTED Sulfamethox-Tmp 800-160Mg [Bactrim DS 800-160 mg] 1 tab PO Q12HR Discharge Medication List Albuterol Sulfate [Ventolin HFA] 2 puff INHALATION RT-Q6H PRN 12/05/21 [History] Alendronate Sodium 70 mg PO Q7D 12/05/21 [History] Cetirizine HCl 10 mg PO DAILY 12/05/21 [History] Ezetimibe [Zetia] 10 mg PO DAILY 12/05/21 [History] Montelukast [Singulair] 10 mg PO HS 12/05/21 [History] Naproxen [EC-Naprosyn] 500 mg PO BID PRN 12/05/21 [History] amLODIPine [Norvasc] 5 mg PO HS 12/05/21 [History] rOPINIRole HCL [Requip] 2 mg PO HS 12/05/21 [History] traMADol HCL 50 mg PO Q6H PRN 12/05/21 [History] Azithromycin [Zithromax] 500 mg PO DAILY 3 Days #3 tab 12/07/21 [Rx] Cefdinir [Omnicef] 300 mg PO Q12HR 5 Days #10 capsule 12/07/21 [Rx] Famotidine [Pepcid] 20 mg PO DAILY #30 tab 12/07/21 [Rx] Follow up Appointment(s)/Referral(s): Nonstaff,Physician [Primary Care Provider] - 1-2 days Ramesh Blair DO [Doctor of Osteopathic Medicine] - 1 Week Ambulatory/Diagnostic Orders: Basic Metabolic Panel [LAB.AMB] Time Frame: 3 Days, Location: None Selected XR chest 2V [RAD.AMB] Time Frame: 3 Days, Location: None Selected Patient Instructions/Handouts: How to Stop Smoking (DC), Bacterial Pneumonia (GEN), Pneumonia (GEN) Activity/Diet/Wound Care/Special Instructions: Discontinue bisoprolol/hydrocholorthiazide combination Repeat metabolic panel to check sodium level in 2 to 3 days Recommend for repeat chest xray outpatient. Need to see a primary doctor on follow up in 2 to 3 days Continue using incentive spirometer 10 times an hour while awake. Discharge Disposition: HOME SELF-CARE
== END 2021-12-07 13:55 | disposition home or self-care (01) ==
LOC: EC 13:07 → 6NMEDSUR 18:56
PROVIDERS: ADMIT Hospitalist; ATTEND Hospitalist
DX: J18.9 Pneumonia, unspecified organism (principal); N39.0 Urinary tract infection, site not specified; R04.2 Hemoptysis; J45.909 Unspecified asthma, uncomplicated; I10 Essential (primary) hypertension; E78.5 Hyperlipidemia, unspecified; R79.89 Other specified abnormal findings of blood chemistry; R51.9 Headache, unspecified; G25.81 Restless legs syndrome; I25.10 Atherosclerotic heart disease of native coronary artery without angina pectoris; R74.02 Elevation of levels of lactic acid dehydrogenase [LDH]; M47.812 Spondylosis without myelopathy or radiculopathy, cervical region; Z20.822 Contact with and (suspected) exposure to COVID-19; Z79.899 Other long term (current) drug therapy; Z88.8 Allergy status to other drugs, medicaments and biological substances; Z91.040 Latex allergy status; Z98.51 Tubal ligation status; Z98.61 Coronary angioplasty status; Z98.890 Other specified postprocedural states; Z87.891 Personal history of nicotine dependence
CPT/HCPCS: 96366 ×3; 96367; 96376; 96365; 96375; 99285; 36415; 94640 ×4; 93005; 85379; 80053 ×2; 83605; 84484; 85025; 85610; 85730; 81003; 87040; 87502; 84145; 87635; 71046; 72125; 70450; 71275; G0378 ×3; J0456; J0696 ×3; J3360; Q9967

== ENCOUNTER → 2021-12-10 | Outpatient (CLI) | payer MEDICARE, BC ==
--- NOTE | 2021-12-10 11:47 | XR ---
EXAMINATION TYPE: XR chest 2V DATE OF EXAM: 12/10/2021 COMPARISON: 12/06/2021 TECHNIQUE: PA and lateral views submitted. HISTORY: Cough FINDINGS: Biapical pleural thickening with right lower lobe infiltrate. Left lung clear. Heart size normal. No overt failure. Hyperinflation suggests COPD. Hypertrophic and degenerative changes spine. IMPRESSION: 1. Mild improvement of right lower lobe pneumonia. Underlying neoplasm not excluded.
[2021-12-10 18:23] LABS: African American GFR (CKD) 109.3 (60.0-200.0); Anion Gap 10.9 mmol/L (10.00-18.00); BUN/Creat Ratio 12.33 Ratio (12.00-20.00); Blood Urea Nitrogen 7.4 mg/dL (9.0-27.0); Calcium 8.8 mg/dL (8.7-10.3); Carbon Dioxide 26.1 mmol/L (20.0-27.5); Non-African American GFR(CKD) 94.3 (60.0-200.0); Potassium 4.5 mmol/L (3.5-5.5)
== END | disposition home or self-care (01) ==
LOC: RADXRMAIN 11:19
PROVIDERS: ATTEND Nurse Practitioner Family
DX: J18.9 Pneumonia, unspecified organism (principal)
CPT/HCPCS: 71046; 80048